=== PATIENT | male | born 1970 | race Caucasian/White ===

== ENCOUNTER 2025-05-12 08:54 | Outpatient (CLI) | payer OTHER, SELFPAY ==
--- NOTE | ~2025-05-12 | CT_ITS ---
EXAMINATION: CT abdomen pelvis w con DATE: 05/12/2025 09:22 INDICATION: Left lower quadrant pain. TECHNIQUE: Computed tomography (CT) of the abdomen and pelvis was performed with 100 cc Omnipaque 350 intravenous contrast. The dose-length product was 461.33 mGy-cm. Automated exposure control and iterative reconstruction technique were employed. COMPARISON: CT dated 09/25/2018 FINDINGS: There is mild thickening of the sigmoid colon with subtle surrounding inflammatory changes of the mesentery, consistent with diverticulitis. No evidence for perforation or abscess. Lung bases unremarkable. Heart size normal. No significant pleural or pericardial effusion. Fatty inf iltration. The spleen, pancreas, adrenal glands and left kidney are unremarkable. There is a right re nal cysts. Gallbladder is present. Nonobstructive bowel gas pattern. Normal appendix. No evidence for hernia. No free air or free fluid. IMPRESSION: 1. Mild uncomplicated sigmoid diverticulitis. Reviewed, dictated and finalized at location A.
--- OUTSIDE RECORDS SUMMARY | 2025-05-12 09:02 | XMS_ITS | Continuity of Care Document ---
Author Organization ID - [facility], [facility] - Toby Monterroso Address [address] [place] [address] Care Team Providers Care Cyber Systems Operations Specialist Name Role Phone WILLIAN JASSO Primary Care Provider Unavailab le Assessment No assessment recorded. Plan of Treatment Reminders Order Date Submit Date Provider Last Modified By Organization Details Last Modified Time Details Appointments None recorded. Lab None recorded. Referral None recorded. Procedures None recorded. Surgeries None recorded. Imaging CT, abdomen + pelvis, w/ contrast - #[id number] , effective 05/11/2025 - 06/25/20252024 025 [facility] (Imaging), [address] [place] [address] [address], [place], [address], 5 04:11:04 Medication Orders valacyclovi r 1 gram tablet 2024 025 [facility], [place], [address], [place], [place], [id number], 5 15:47:16 ciprofloxac in 500 mg tablet 2024 025 [facility], [place], [address], [place], [place], [id number], 5 15:47:17 metronidazo le 500 mg tablet 2024 025 [facility], [place], [address], [place], [place], [id number], 5 15:47:16 Patient TargetsNo targets recorded. Patient InstructionsNo instructions recorded. Reason for Referral None Reported. Results Created Date Observation Date Name Description Value Unit Range Abnormal Flag Note LastModifiedBy Organization Detail LastModifiedTime 05/10/2005/05/2025 miguel lozano am No observ ation record ed. [email or web address] [facility] [address], [place], [address], 05/11/2025 11:49:25 Result Notes None recorded. Problems Name Problem SNOMED Code Status Onset Date Resolution Date Notes Provider Name and Address Organization Details Recorded Time Body mass index 25-29 - overweight 861401852 Active 2023 DIVINE Lutz Attn: Accountin g,[address] [facility], [place], [address], [place] - [facility] 4 11:02:17 Overweight 009659054 Active 2023 DIVINE Lutz Attn: Accountin g,[address] [facility], [place], [address], [place] - [facility] 4 11:02:25 Diverticular disease 536168331 Active 2023 DIVINE Lutz Attn: Accountin g,[address] [facility], [place], [address], [place] [facility] 5 16:16:04 History of polyp of colon 878416128 Active 2023 DIVINE Lutz Attn: Accountin g,[address] [facility], [place], [address], [place] [facility] 4 11:08:04 Decreased hearing 340805181 Active 2023 DIVINE Ltuz Attn: Accountin g,[address] [facility], [place], [address], [place] [facility] 4 00:21:22 Herpes labialis 4789522 Active 2024 DIVINE Lutz Attn: Bradley walsh,[address], [place], [address], [facility] - [facility] 5 16:15:41 Overweight in adulthood with body mass index of 25 or more but less than 30 151541086 Active 2024 DIVINE Lutz Attn: Bradley g,[address], [place], [address], [place] - [facility] 5 16:15:46 Problem Notes None recorded. Procedures Surgical History Date Name Laterality Status Provider Name and Address Organization Details Recorded Time Vasectomy completed Carlos Shipley MA [facility] 10/03/2024 11:07:40 Tonsillectomy completed Carlos Shipley MA [facility] 10/03/2024 11:07:46 Imaging Results None recorded. Procedure Notes None recorded. Medical Equipment None Reported. Allergies No known drug allergies Medications Name Sig Start Date Stop Date Status Note LastModified by Organization Details LastModified Time doxycycline hyclate 100 mg capsule Take one capsule two times daily by mouth as directed 05/08 completed Not Available Not Available Not Available azithromyci n 250 mg tablet Take two tablets by mouth on day 1 followed by one tablet daily by mouth for a total of 5 days as directed 05/08 completed Not Available Not Available Not Available fluconazole 150 mg tablet Take one tablet by mouth ONCE. May repeat dose in 72 hours if needed. Take as directed. 05/10 completed Not Available Not Available Not Available valacyclovi r 1 gram tablet Take 2 tablets every 12 hours by oral route for 1 day. 2024 active Not Available Not Available Not Avai lable phenazopyri dine 200 mg tablet Take one tablet every 8 hours as needed 05/10 completed Not Available Not Available Not Available metronidazo le 500 mg tablet Take 1 tablet every 8 hours by oral route. 2024 active Not Available Not Available Not Avai lable valacyclovi r 500 mg tablet Take by oral route as directed for 41 days. active Not Available Not Available No t Available ciprofloxac in 500 mg tablet Take 1 tablet every 12 hours by oral route. 07/24/ 2025 active Not Available Not Available Not Avai lable nitrofurant oin macrocrysta l 100 mg capsule Take one capsule two times daily for up to 7 days 05/08 completed Not Available Not Available Not Available amoxicillin 875 mg-potassiu m clavulanate 125 mg tablet Take one tablet by mouth two times daily as directed 05/08 completed Not Available Not Available Not Available Vitals Date Recorded Body height Body mass index (BMI) Body weight Oxygen saturation Oxygen saturation in Arterial blood by Pulse oximetry Heart rate Respiratory rate Systolic And Diastolic Provider Name and Address Organization Details Last Updated DateTime 5 177.8 cm 26.4 kg/m2 71158 g 96 % 96 % 81 /min 20 /min 118/82 mm[Hg] Carlos Shipley MA [facility] 5 15:05:09 Social History Question Answer Notes LastModified by [employer] ion Details LastModified Time Tobacco Smoking Status Never Smoker Carlos Shipley MA null, [facility] 10/03/2024 10:57:09 Do You Have An Advance Directive? Yes Trust Information not available 10/03/2024 Are You Blind Or Do You Have Difficulty Seeing? Yes Glasses/c ontacts Information not available 10/03/2024 What Is Your Level Of Caffeine Consumption? Moderate Information not available 10/03/2024 In The 14 Days Before Symptom Onset, Have You Had Close Contact With A Laboratory-confir med COVID-19 While That Case Was Ill? No Information not available 05/11/2025 In The 14 Days Before Symptom Onset, Have You Had Close Contact With A Person Who Is Under Investigation For COVID-19 While That Person Was Ill? No Information not available 05/11/2025 Have You Been To An Area Known To Be High Risk For COVID-19? No Information not available 05/11/2025 Are You Deaf Or Do You Have Serious Difficulty Hearing? Yes Information not available 10/03/2024 What Type Of Diet Are You Following? REGULAR Information not available 10/03/2024 Are There Any Guns Present In Your Home? Yes Information not available 10/03/2024 What Was The Date Of Your Most Recent Tobacco Screening? 05/11/2025 Information not available 05/11/2025 What Is Your Relationship Status? Information not available 10/03/2024 Do You Use Your Seat Belt Or Car Seat Routinely? Yes Information not available 10/03/2024 Do You Have Smoke And Carbon Monoxide Detectors In Your Home? Yes Information not available 10/03/2024 Do You Use Sunscreen Routinely? Yes Information not available 10/03/2024 Has Tobacco Cessation Counseling Been Provided? No Information not available 10/03/2024 Sex: Male Functional Status Question Answer Note LastModified by Organizat ion Details LastModified Time Do you use any illicit or recreational drugs? No Information not available 10/03/2024 Do you or have you ever used any other forms of tobacco or nicotine? No Information not available 10/03/2024 What is your level of alcohol consumption? None Information not available 10/03/2024 Are you currently employed? Yes Information not available 10/03/2024 Are you able to care for yourself independently? Yes Information not available 10/03/2024 What is your exercise level? Moderate 5x a week Information not available 10/03/2024 Mental Status None recorded. Family History Relationship Description Onset Age of this Age Resolved Age Notes LastModified by Organization Details LastModified Time Father Heart disease [email or web address] Not available 2023 11:07:56 Father Myocardial infarction [email or web address] Not available 10/03 11:08:03 Medical History Condition Response Coronary Artery Disease N Other N High Blood Pressure N Atrial Fibrillation N Thyroid Problems N Kidney or Bladder Problems N GI Problems Y Depression N COPD N Blood Clots N Have you had a mammogram in the last yea r? N Skin Problems N Anemia N Heart Attack (ID) N Diabetes N Anxiety Disorder N Muscle, Joint, or Bone Problems N Seizures/Epilepsy N Have you had a colonoscopy in the last 1 0 years? N Acid Reflux (GERD) N Cancer N Stroke N Asthma N Allergies N Have you had a PSA blood test in the las t year? N High Cholesterol N Hepatitis N Liver Disease N Headaches N Osteoporosis N Heart Failure N Immunizations Vaccine Type Date Status Note Provider Nam e and Address Organization Details Recorded Time COVID-19, mRNA, LNP-S, PF, 30 mcg/0.3 mL dose 12/20/2020 completed RAY [place], [place] [facility] 11/02/2024 12:36:25 COVID-19, mRNA, LNP-S, PF, 30 mcg/0.3 mL dose 01/10/2021 completed RAY [place], [place] [facility] 11/02/2024 12:36:25 Past Encounters Encounter ID Performer Location Encounter Start Date Encounter Closed Date Diagnosis/Indication Diagnosis SNOMED-CT Code Diagnosis ICD10 Code Diagnosis Note [id number] Peter Garrido MD [facility] - Toby Monterroso [address] [place] [address] 05/11/2025 14:42:56 05/11/2025 16:16:26 Overweight in adulthood with body mass index of 25 or more but less than 30 606213175 E66.3 Z68.26 BMI is 26.4 Left lower quadrant pain 899652311 R10.32 Patient has already eaten for the day exam shows tenderness but no rebound or guarding. We will send him for a CT scan abdomen and pelvis with contrast in the morning to evaluate for diverticul ar smoldering infection versus micro per 5 with walled off abscess. We will also empiricall y start Cipro 500 mg twice daily and Flagyl 500 mg 3 times daily for 7 days. Herpes labialis 2853085 B00.1 Refill needed on valacyclov ir Diverticular disease 397 504084 K57.90 History of diverticul ar disease noted Health Concerns Section Related Observation LastModified by Organization Detai ls LastModified Time None Recorded Concern Status LastModified by Organization Details LastModified Time None Recorded Payers Encounter Date Sequence Insurance Name Policy Number Policy Sanderson Covered Member ID Sanderson Member ID Guarantor Name 05/11/[address] [facility] [id number] Trini Swann [id number] Haile Swann Notes Date Note Type Note Provider Name and Address Organization Details Recorded Time text/html Abdominal PainReported by PatientAbdominal PainFor quality, patient reportspain,bloating,dul l,sharp, andfullness. For location, patient reportsllqandsuprapubic. For severity, patient reportsmoderate. For duration, patient reportsintermittent. For onset/timing, patient reportswax/wane. For associated symptoms, patient reportsno fever,no chills,no blood in the urine,no heartburn, andno shortness of breath. For context, (history of diverticulitis).Patient presented to the emergency room while in [facility] feeling very poorly some GI disturbance left lower quadrant discomfort overall malaise fatigue dizziness feeling of just exhaustion and illness. No fever no vomiting no chills no chest pain no shortness a breath. He had a high sugar upon EMS evaluation after drinking a Coca-Cola to try to see if that helped his symptoms, of which it did not. He was taken to the emergency room and was found to have an A1c of 5.8% his blood pressure was 149/86 with a little bit of tachycardia but nothing significant. EKG was overall stable chest x-ray was clear no acute findings with the blood work. He was admitted overnight for observation. They felt that he was possibly dehydrated and it was the effects of high altitude in having some natural diuresis that was happening with that. One of the biggest symptoms that he was experiencing was significant urinary frequency. There was no UTI found. There was no scanning that was completed in the emergency room on the abdomen and pelvis. He presents here for follow-up. Yesterday he had a little similar episode to a much lesser degree but is feeling back to normal today besides some left lower quadrant discomfort that is mild. It is very minimally similar to his diverticular problems in the past. DIVINE Lutz Attn: Accounting,[address] [place], [address], [facility] - [facility] 05/11/2025 16:16:23
--- OUTSIDE RECORDS SUMMARY | 2025-05-12 09:02 | XMS_ITS | Data Portability ---
Author Organization EDY ELLYNJose Alejandro Nair Address [address] [facility] [place] [address] Care Team Providers Care Brinell Tester Name Role Phone PENNY JASSO Primary Care Provider Unavailab le Assessment Encounter Date Assessment Date Assessment LastModified by Organization Details LastModified Time 10/03/2024 10/03/2024 Colonoscopy ? due, patient will reach out to us once he finds the location that he had his colonoscopy previously and the year completed. We will also acquire medical records from the last office location Not available 10/17/2024 00:21:04 Plan of Treatment Reminders Order Date Submit Date Provider Last Modified By Organization Details Last Modified Time Details Appointments None recorded. Lab PSA, total, serum or plasma 2023 024 [facility], [address] [facility], [facility] [place], [address], 4 07:09:54 TSH + free T4, serum 2023 024 [facility], [address] [facility], [facility] [place], [address], 4 07:09:48 lipid panel, serum or plasma 2023 024 [facility], [address] [facility], [facility] [address], [place], [address], 4 07:09:49 CBC w/ auto diff 2023 024 [facility], [address] [facility], [facility] [address], [place], [address], 4 07:09:53 CMP, serum or plasma 2023 024 [facility], [address] [facility], [facility] [address], [place], [address], 4 07:09:50 HbA1c (hemoglobin A1c), blood 2023 024 [facility], [address] [facility], [facility] [address], [place], [address], 4 07:09:52 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 Surgeries None recorded. Imaging CT, abdomen + pelvis, w/ contrast - #[id number] , effective 05/11/2025 - 06/25/20252024 025 [facility]), [address] [facility] [address], [place], [address], 5 04:11:04 Medication Orders valacyclovi r 1 gram tablet 2024 025 [facility] by [facility], [address], [place], [place], [id number], 5 15:47:16 ciprofloxac in 500 mg tablet 2024 025 [facility], [address], [place], [place], [id number], 5 15:47:17 metronidazo le 500 mg tablet 2024 025 [facility], [address], [place], [place], [id number], 15:47:16 Patient TargetsNo targets recorded. 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 reased hearing Referring Physician: Penny Jasso, Internal Medicine, Encounter Date: 10/03/2024 Results Created Date Observation Date Name Description Value Unit Range Abnormal Flag Note LastModifiedBy Organization Detail LastModifiedTime 10/05/2010/06/2024 TSH+F REE T4 TSH 2.160 uIU/m L 0.450- 4.500 Not Available [facility] ([facility]) [address] [place], [address], 10/06/2024 07:09:48 10/05/2010/06/2024 TSH+F REE T4 T4,free(dire ct) 1.13 NG/dL 0.82-1 .77 Not Available [facility] ([facility]) [address] [place], [address], 10/06/2024 07:09:48 10/05/20 24 10/06/2024 LIPID PANEL WITH LDL/H DL RATIO cholesterol, total 208 mg/dL 100-19 9 above high normal Not Available [facility] ([facility]) [address] [place], [address], 10/06/2024 07:09:49 10/05/20 24 10/06/2024 LIPID PANEL WITH LDL/H DL RATIO triglyceride s 149 mg/dL 0-149 Not Available [facility] ([facility]) [address] [place], [address], 10/06/2024 07:09:49 10/05/20 24 10/06/2024 LIPID PANEL WITH LDL/H DL RATIO HDL cholesterol 37 mg/dL >39 below low normal Not Available [facility] ([facility]) [address] [place], [address], 10/06/2024 07:09:49 10/05/20 24 10/06/2024 LIPID PANEL WITH LDL/H DL RATIO VLDL cholesterol renato 27 mg/dL 5-40 Not Available [facility] ([facility]) [address] [place], [address], 10/06/2024 07:09:49 10/05/20 24 10/06/2024 LIPID PANEL WITH LDL/H DL RATIO LDL chol calc ([facility]) 144 mg/dL 0-99 above high normal Not Available [facility] ([facility]) [address] [place], [address], 10/06/2024 07:09:49 10/05/20 24 10/06/2024 LIPID PANEL WITH LDL/H DL RATIO LDL/HDL ratio 3.9 ratio 0.0-3. 6 above high normal LDL/H DL Ratio Men Women 1/2 Avg.R isk 1.0 1.5 Avg.R isk 3.6 3.2 2X Avg.R isk 6.2 5.0 3X Avg.R isk 8.0 6.1 Not Available [facility] ([facility]) [address] [place], [address], 10/06/2024 07:09:49 10/05/20 24 10/06/2024 COMP. METAB OLIC PANEL (14) glucose 91 mg/dL 70-99 Not Available [facility] ([facility]) [address] [place], [address], 10/06/2024 07:09:50 10/05/20 24 10/06/2024 COMP. METAB OLIC PANEL (14) BUN 13 mg/dL 6-24 Not Available [facility] ([facility]) [address] [place], [address], 10/06/2024 07:09:50 10/05/20 24 10/06/2024 COMP. METAB OLIC PANEL (14) creatinine 0.88 mg/dL 0.76-1 .27 Not Available [facility] ([facility]) [address] [place], [address], 10/06/2024 07:09:50 10/05/20 24 10/06/2024 COMP. METAB OLIC PANEL (14) eGFR 102 mL/mi n/1.7 3 >59 Not Available [facility] ([facility]) [address] [place], [address], 10/06/2024 07:09:50 10/05/20 24 10/06/2024 COMP. METAB OLIC PANEL (14) BUN/creatini ne ratio 15 9-20 Not Available [facility] ([facility]) [address] [place], [address], 10/06/2024 07:09:50 10/05/20 24 10/06/2024 COMP. METAB OLIC PANEL (14) sodium 138 mmol/ L 134-14 4 Not Available [facility] ([facility]) [address] [place], [address], 10/06/2024 07:09:50 10/05/20 24 10/06/2024 COMP. METAB OLIC PANEL (14) potassium 4.3 mmol/ L 3.5-5. 2 Not Available [facility] ([facility]) [address] [place], [address], 10/06/2024 07:09:50 10/05/20 24 10/06/2024 COMP. METAB OLIC PANEL (14) chloride 100 mmol/ L 96-106 Not Available [facility] ([facility]) [address] [place], [address], 10/06/2024 07:09:50 10/05/20 24 10/06/2024 COMP. METAB OLIC PANEL (14) carbon dioxide, total 24 mmol/ L 20-29 Not Available [facility] ([facility]) [address] [facility], [place], [address], 10/06/2024 07:09:50 10/05/20 24 10/06/2024 COMP. METAB OLIC PANEL (14) calcium 9.7 mg/dL 8.7-10 .2 Not Available [facility] ([facility]) [address] [place], [address], 10/06/2024 07:09:50 10/05/20 24 10/06/2024 COMP. METAB OLIC PANEL (14) protein, total 6.8 g/dL 6.0-8. 5 Not Available [facility] ([facility]) [address] [place], [address], 10/06/2024 07:09:50 10/05/20 24 10/06/2024 COMP. METAB OLIC PANEL (14) albumin 4.5 g/dL 3.8-4. 9 Not Available [facility] ([facility]) [address] [place], [address], 10/06/2024 07:09:50 10/05/20 24 10/06/2024 COMP. METAB OLIC PANEL (14) globulin, total 2.3 g/dL 1.5-4. 5 Not Available [facility] ([facility]) [address] [place], [address], 10/06/2024 07:09:50 10/05/20 24 10/06/2024 COMP. METAB OLIC PANEL (14) bilirubin, total 0.5 mg/dL 0.0-1. 2 Not Available [facility] ([facility]) [address] [place], [address], 10/06/2024 07:09:50 10/05/20 24 10/06/2024 COMP. METAB OLIC PANEL (14) alkaline phosphatase 50 IU/L 44-121 Not Available [facility] ([facility]) [address] [place], [address], 10/06/2024 07:09:50 10/05/20 24 10/06/2024 COMP. METAB OLIC PANEL (14) AST (SGOT) 19 IU/L 0-40 Not Available [facility] ([facility]) [address] [facility], [place], [address], 10/06/2024 07:09:50 10/05/20 24 10/06/2024 COMP. METAB OLIC PANEL (14) ALT (SGPT) 20 IU/L 0-44 Not Available [facility] ([facility]) [address] [facility], [place], [address], 10/06/2024 07:09:50 10/05/20 24 10/06/2024 HEMOG LOBIN A1C hemoglobin A1C 6.3 % 4.8-5. 6 above high normal Predi abete s: 5.7 - 6.4 Diabe mitch: >6.4 Glyce katey contr ol for adult s with diabe mitch: <7.0 Not Available [facility] ([facility]) [address] [facility], [place], [address], 10/06/2024 07:09:51 10/05/20 24 10/05/2024 CBC WITH DIFFE RENTI AL/PL ATELE T WBC 5.9 x10e3 /uL 3.4-10 .8 Not Available [facility] ([facility]) [address] [place], [address], 10/06/2024 07:09:52 10/05/20 24 10/05/2024 CBC WITH DIFFE RENTI AL/PL ATELE T RBC 5.12 x10e6 /uL 4.14-5 .80 Not Available [facility] ([facility]) [address] [place], [address], 10/06/2024 07:09:52 10/05/20 24 10/05/2024 CBC WITH DIFFE RENTI AL/PL ATELE T hemoglobin 15.8 g/dL 13.0-1 7.7 Not Available [facility] ([facility]) [address] [facility], [place], [address], 10/06/2024 07:09:52 10/05/20 24 10/05/2024 CBC WITH DIFFE RENTI AL/PL ATELE T hematocrit 47.4 % 37.5-5 1.0 Not Available [facility] ([facility]) [address] [facility], [place], [address], 10/06/2024 07:09:52 10/05/20 24 10/05/2024 CBC WITH DIFFE RENTI AL/PL ATELE T MCV 93 fL 79-97 Not Available [facility] ([facility]) [address] [facility], [place], [address], 10/06/2024 07:09:52 10/05/20 24 10/05/2024 CBC WITH DIFFE RENTI AL/PL ATELE T MCH 30.9 pg 26.6-3 3.0 Not Available [facility] ([facility]) [address] [facility], [place], [address], 10/06/2024 07:09:52 10/05/20 24 10/05/2024 CBC WITH DIFFE RENTI AL/PL ATELE T MCHC 33.3 g/dL 31.5-3 5.7 Not Available [facility] ([facility]) [address] [facility], [place], [address], 10/06/2024 07:09:52 10/05/20 24 10/05/2024 CBC WITH DIFFE RENTI AL/PL ATELE T RDW 12.3 % 11.6-1 5.4 Not Available [facility] ([facility]) [address] [facility], [place], [address], 10/06/2024 07:09:52 10/05/20 24 10/05/2024 CBC WITH DIFFE RENTI AL/PL ATELE T platelets 206 x10e3 /uL 150-45 0 Not Available [facility] ([facility]) [address] [facility], [place], [address], 10/06/2024 07:09:52 10/05/20 24 10/05/2024 CBC WITH DIFFE RENTI AL/PL ATELE T neutrophils 60 % notest ab. Not Available [facility] ([facility]) [address] [facility], [place], [address], 10/06/2024 07:09:52 10/05/20 24 10/05/2024 CBC WITH DIFFE RENTI AL/PL ATELE T lymphs 30 % notest ab. Not Available [facility] ([facility]) [address] [facility], [place], [address], 10/06/2024 07:09:52 10/05/20 24 10/05/2024 CBC WITH DIFFE RENTI AL/PL ATELE T monocytes 8 % notest ab. Not Available [facility] ([facility]) [address] [facility], [place], [address], 10/06/2024 07:09:52 10/05/20 24 10/05/2024 CBC WITH DIFFE RENTI AL/PL ATELE T eos 1 % notest ab. Not Available [facility] ([facility]) [address] [facility], [place], [address], 10/06/2024 07:09:52 10/05/20 24 10/05/2024 CBC WITH DIFFE RENTI AL/PL ATELE T basos 1 % notest ab. Not Available [facility] ([facility]) [address] [facility], [place], [address], 10/06/2024 07:09:52 10/05/20 24 10/05/2024 CBC WITH DIFFE RENTI AL/PL ATELE T neutrophils (absolute) 3.5 x10e3 /uL 1.4-7. 0 Not Available [facility] ([facility]) [address] [facility], [place], [address], 10/06/2024 07:09:52 10/05/20 24 10/05/2024 CBC WITH DIFFE RENTI AL/PL ATELE T lymphs (absolute) 1.8 x10e3 /uL 0.7-3. 1 Not Available [facility] ([facility]) [address] [facility], [place], [address], 10/06/2024 07:09:52 10/05/20 24 10/05/2024 CBC WITH DIFFE RENTI AL/PL ATELE T monocytes(ab solute) 0.5 x10e3 /uL 0.1-0. 9 Not Available [facility] ([facility]) [address] [facility], [place], [address], 10/06/2024 07:09:52 10/05/20 24 10/05/2024 CBC WITH DIFFE RENTI AL/PL ATELE T eos (absolute) 0.1 x10e3 /uL 0.0-0. 4 Not Available [facility] ([facility]) [address] [facility], [place], [address], 10/06/2024 07:09:52 10/05/20 24 10/05/2024 CBC WITH DIFFE RENTI AL/PL ATELE T baso (absolute) 0.0 x10e3 /uL 0.0-0. 2 Not Available [facility] ([facility]) [address] [facility], [place], [address], 10/06/2024 07:09:52 10/05/20 24 10/05/2024 CBC WITH DIFFE RENTI AL/PL ATELE T immature granulocytes 0 % notest ab. Not Available [facility] ([facility]) [address] [facility], [place], [address], 10/06/2024 07:09:52 10/05/20 24 10/05/2024 CBC WITH DIFFE RENTI AL/PL ATELE T immature grans (abs) 0.0 x10e3 /uL 0.0-0. 1 Not Available [facility] ([facility]) [address] [facility], [place], [address], 10/06/2024 07:09:52 10/05/2010/06/2024 PROST ATE-S PECIF IC AG prostate specific Ag 0.6 NG/mL 0.0-4. 0 Tulio ECLIA metho dolog y. Accor ding to the Ameri can Urolo gical Assoc iatio n, Serum PSA shoul d decre ase and remai n at undet ectab le level s after radic al prost atect scott. The AUA defin es bioch emica l recur rence as an initi al PSA value 0.2 ng/mL or great er follo wed by a subse quent confi rmato ry PSA value 0.2 ng/mL or great er. Value s obtai alberto with diffe rent assay metho ds or kits canno t be used inter penn eably . Resul ts canno t be inter prete d as absol bishop paiute evide nce of the prese nce or absen ce of ingrid stoll se. Not Available [facility] ([facility]) [address] [facility], [place], [address], 10/06/2024 07:09:54 05/10/2005/05/2025 elect shivani blake am No observ ation record ed. [email or web address] [facility]) [address] [facility], [place], [address], 05/11/2025 11:49:25 Result Notes None recorded. Problems Name Problem SNOMED Code Status Onset Date Resolution Date Notes Provider Name and Address Organization Details Recorded Time Body mass index 25-29 - overweight 530141885 Active 2023 [facility] Attn: Bradley walsh,[address] [facility], [place], [address], [facility] 4 11:02:17 Overweight 870675615 Active 2023 [facility] Attn: Bradley walsh,[address] [place], [address], [place] - [facility] 4 11:02:25 Diverticular disease 480581354 Active 2023 [facility] Attn: Bradley walsh,[address] [facility], [place], [address], [place] - [facility] 5 16:16:04 History of polyp of colon 916728263 Active 2023 [facility] Attn: Bradley walsh,[address] [facility], [place], [address], [place] - [facility] 4 11:08:04 Decreased hearing 384600057 Active 2023 [facility] Attn: Bradley walsh,[address] [place], [address], [place] - [facility] 4 00:21:22 Herpes labialis 4948671 Active 2024 [facility] Attn: Bradley walsh,[address] [facility], [place], [address], [place] - [facility] 5 16:15:41 Overweight in adulthood with body mass index of 25 or more but less than 30 616361970 Active 2024 [facility] Attn: Bradley walsh,[address] [place], [address], [place] - [facility] 5 16:15:46 Problem Notes None recorded. Procedures Surgical History Date Name Laterality Status Provider Name and Address Organization Details Recorded Time Vasectomy completed Carlos Shipley MA [place] [facility] 10/03/2024 11:07:40 Tonsillectomy completed Carlos Shipley MA [place] [facility] 10/03/2024 11:07:46 Imaging Results None recorded. Procedure [...] tablet every 12 hours by oral route. 2024 active Not [...] Updated DateTime 5 177.8 cm 26.4 kg/m2 00047 g 96 % 96 % 81 /min 20 /min 118/82 mm[Hg] Carlos Shipley MA [facility] 15:05:09 Date Recorded Respiratory rate Systolic And Diastolic Provider Name and Address Organization Details Last Updated DateTime 10/03/2024 18 /min 120/80 mm[Hg] DIV[facility] Attn: Accounting,[address] [facility], [place], [address], [facility] 10/03/2024 11:17:22 Date Recorded Body weight Body mass index (BMI) Body height Oxygen saturation Oxygen saturation in Arterial blood by Pulse oximetry Heart rate Systolic And Diastolic Provider Name and Address Organization Details Last Updated DateTime 4 78761.3 3 g 27.7 kg/m2 177.8 cm 96 % 96 % 78 /min 108/82 mm[Hg] Carlos Shipley MA [facility] 10:59:50 Social History Question Answer Notes LastModified by Organizat ion Details LastModified Time Tobacco Smoking Status Never Smoker Carlos Shipley MA null, [facility] 10/03/2024 10:57:09 Do You Have An [...] Problems N Kidney or Bladder Problems N Depression N COPD N Blood Clots N GI Problems Y Have you had a mammogram in the last yea r? N Skin Problems N Anemia N Heart Attack (ID) N Anxiety Disorder N Diabetes N Muscle, Joint, or Bone Problems N [...] PF, 30 mcg/0.3 mL dose 12/20/2020 completed Carlos Shipley [place] null, [place] - [facility] 11/02/2024 12:36:25 COVID-19, mRNA, LNP-S, PF, 30 mcg/0.3 mL dose 01/10/2021 completed Carlos Shipley MA [place], [place] - [facility] 11/02/2024 12:36:25 Past Encounters Encounter ID Performer Location Encounter Start Date Encounter Closed Date Diagnosis/Indication Diagnosis SNOMED-CT Code Diagnosis ICD10 Code Diagnosis Note [id number] Peter Garrido MD [facility] [facility] [place] [address] [place] [address] 10/03/2024 10:39:54 10/03/2024 12:15:59 Adult health examination 760409049 Z00.00 Annual wellness exam completed with fasting labs ordered Cholesterol screening 27 0976811 Z13.220 Fasting lipid due Diabetes m ellitus screening 982484223 Z13.1 Annual diabetes screening ordered Screening for malignant neoplasm of prostate 767879693 Z12.5 Annual PSA due Body mass index 25-29 - overweight 910126423 Z68.27 BMI is 27.7 Overweight 475494974 E66 .3 Decreased hearing 082301 001 H91.90 Refer for formal audiology exam per patient request with decreased hearing History of polyp of colon 456248074 Z86.0100 pt will notify us on where to send colonoscop y order. he went to a provider in [facility]. Thyroid di sorder screening 102867196 Z13.29 Routine thyroid function testing due Diverticular disease 397 749419 K57.90 no recent flare up. he manages well with diet. [id number] Peter Garrido MD [facility] [employer] [address] [place] [address] 05/11/2025 14:42:56 05/11/2025 16:16:26 Overweight in adulthood with body mass index of 25 or more but less than 30 767186155 E66.3 Z68.26 BMI is 26.4 Left lower quadrant pain 710800570 R10.32 Patient has already eaten for the [...] times daily for 7 days. Herpes labialis 2401800 B00.1 Refill needed on valacyclov ir Diverticular disease 397 158789 K57.90 History of diverticul ar disease noted Health Concerns Section Related Observation LastModified by Organization Detai ls LastModified Time None Recorded Concern Status LastModified by Organization Details LastModified Time None Recorded Advance Directives Directive Y: Trust Payers Insurance Date Sequence Insurance Name Policy Number Policy Sanderson Covered Member ID Sanderson Member ID Guarantor Name 05/09/2025 1 [facility] [id number] Trini Swann [id number] Haile Swann Notes Date Note Type Note Provider Name and Address Organization Details Recorded Time 4 text/html pt here for annual wellness. History of colonoscopy with no polyps. [facility] L[facility] Attn: Accounting,[address] [place], [address], [place] [facility] 10/17/2024 00:22:02 5 text/html Abdominal PainReported by PatientAbdominal PainFor quality, patient reportspain,bloating,dul l,sharp, andfullness. For location, patient reportsllqandsuprapubic. For severity, patient reportsmoderate. For duration, patient reportsintermittent. For onset/timing, patient reportswax/wane. For associated symptoms, patient reportsno fever,no chills,no blood in the urine,no heartburn, andno shortness of breath. For context, (history of diverticulitis).Patient presented to the emergency room while in [facility] feeling very poorly some GI disturbance left [...] the past. DIVINE Lutz Attn: Accounting,[address] [place], [address], [place] [facility] 05/11/2025 16:16:23
--- OUTSIDE RECORDS SUMMARY | 2025-05-12 09:02 | XMS_ITS | Patient Health Record ---
Author Organization [id number] Address [address] [facility] [address] [address] Care Team Providers Care Apartment Maintenance Supervisor Name Role Phone Demarco Bowman MD Primary Care Provider Unavailabl e Reason For Referral No Information Plan Of Treatment No Information Insurance Providers Payer Name Payer Address Payer Phone Subscriber Number Group Number Insured Name Patient Relationship to Insured Coverage Start Date Coverage End Date [employer] Choice/ choice Plus [id number] [address] [address] [place] [address] [phone] [id number] Haile Swann Spouse - patient is the spouse of the insured
--- OUTSIDE RECORDS SUMMARY | 2025-05-12 09:02 | XMS_ITS | Data Portability ---
Author Organization [facility] [employer], Main Office Address [address] [place] [address] Assessment No assessment recorded. Plan of Treatment Reminders Order Date Submit Date Provider Last Modified By Organization Details Last Modified Time Details Appointments None recorded. Lab PSA, serum or plasma 2022 023 [email or web address] 4 Not available 4 16:36:29 lipid panel, serum 2022 023 [email or web address] 4 Not available 4 16:36:29 HbA1c (hemoglobin A1c), blood 2022 023 [email or web address] 4 Not available 4 16:36:29 CMP, serum or plasma 2022 023 [email or web address] 4 Not available 4 16:36:28 CBC w/ auto diff 2022 023 [email or web address] 4 Not available 4 16:36:28 urinalysis, complete 2022 023 [email or web address] 4 Not available 4 16:36:29 vitamin B12 + folate, serum or blood 2022 023 [email or web address] 4 Not available 4 16:36:29 Referral None recorded. Procedures colonoscopy screening (PROC) 2022 023 lila Fowler, [address] [facility], [address], [address], 4 09:35:17 Surgeries None recorded. Imaging None recorded. Medication Orders None recorded. Patient TargetsNo targets recorded. Patient InstructionsNo instructions recorded. Reason for Referral None Reported. Results Created Date Observation Date Name Description Value Unit Range Abnormal Flag Note LastModifiedBy Organization Detail LastModifiedTime 10/09/2010/09/2021 XR, cervi renato spine No observ ation record ed. [id number] , [place], [address], 12/17/2022 17:48:41 Result Notes None recorded. Problems Name Problem SNOMED Code Status Onset Date Resolution Date Notes Provider Name and Address Organization Details Recorded Time Injury of foot 290638820 Active [facility] Available [facility] 17:45:43 Plantar fasciitis 818991684 Active [facility] Available [facility] 17:45:43 Fracture of phalanx of foot 00879780 Active [facility] Available [facility] 17:45:43 Eruption 821654418 Active [facility] Available [facility] 17:45:43 Pain in toe 204456287 Active Not Available [facility] 17:45:43 Sinusitis 74510128 Active Not Available [facility] 17:45:43 Pharyngitis 387656756 Active Not Available [facility] 17:45:43 Closed fracture of phalanx of foot 28025639 Active Not Available [facility] 17:45:44 Problem Notes None recorded. Procedures Surgical History Date Name Laterality Status Provider Name and Address Organization Details Recorded Time Vasectomy completed Not Available [facility] 17:43:46 Tonsillectomy completed Not Available [facility] 12/17/2022 17:43:46 Imaging Results None recorded. Procedure Notes None recorded. Medical Equipment None Reported. Allergies Allergen ID Allergen Name Allergen Category Reaction Reaction Severity Criticality Documentation Date Start Date Code Code System Note Provider Name and Address Organization Details Recorded Time 64435 Augmentin medicatio n rash Not available Not available 12/17/2022 92652 2 RxNorm Not Available [facility] 17:48:34 Medications Name Sig Start Date Stop Date Status Note LastModified by Organization Details LastModified Time cyclobenzap rine 10 mg tablet Take 1 tablet 3 times a day by oral route as needed. active Not Available Not Available No t Available azithromyci n 250 mg tablet TK 1 T PO D X 6 WEEKS 12/21 completed Not Available Not Available Not Available metronidazo le 500 mg tablet Take 1 tablet every 8 hours by oral route. 08/01 completed Not Available Not Available Not Available ciprofloxac in 500 mg tablet 08/01 completed Not Available Not Available Not Available triamcinolo ne acetonide 0.1 % topical cream APPLY TO PINK SPOTS BID 10/04 completed Not Available Not Available Not Available trazodone 100 mg tablet active Not Available Not Available Not Available levofloxaci n 500 mg tablet TK 1 T PO Q 24 H 09/28 completed Not Available Not Available Not Available methylpredn isolone 4 mg tablets in a dose pack take as directed 06/02 completed Not Available Not Available Not Available fluticasone propionate 50 mcg/actuati on nasal spray,suspe nsion active Not Available Not Available Not Available doxycycline hyclate 100 mg tablet TK 1 T PO BID active Not Available Not Available No t Available naproxen 500 mg tablet Take by oral route as needed for 30 days. active Not Available Not Available No t Available diclofenac 1 % topical gel APPLY 2 GRAM TO THE AFFECTED AREA(S) TOPICALLY FOUR TIMES DAILY NEEDED FOR PAIN 10/03 completed Not Available Not Available Not Available Cayla-D takes as needed for sinuses 2015 active Not Available Not Available Not Avai lable Vitals Date Recorded Systolic And Diastolic Provider Name and Address Organization Details Last Updated DateTime 06/02/2023 120/70 mm[Hg] DIVINE Lutz [address] [facility], [facility] [address], [place], [address], [place] [employer] 06/02/2023 17:15:53 Date Recorded Body weight Body mass index (BMI) Body height Body temperature Heart rate Oxygen saturation Oxygen saturation in Arterial blood by Pulse oximetry Systolic And Diastolic Provider Name and Address Organization Details Last Updated DateTime 3 23867.3 7 g 27.8 kg/m2 175.26 cm 98 [degF] 74 /min 97 % 97 % 124/72 mm[Hg] Stefanie Ortiz RN [facility] [employer] 3 16:35:28 Date Recorded Body mass index (BMI) Body height Oxygen saturation Oxygen saturation in Arterial blood by Pulse oximetry Heart rate Body temperature Body weight Systolic And Diastolic Provider Name and Address Organization Details Last Updated DateTime 1 30.1 kg/m2 167.64 cm 98 % 98 % 80 /min 96.9 [degF] 76350.3 4 g 120/80 mm[Hg] Not Available [facility] 3 17:45:02 Social History Question Answer Notes LastModified by [employer] Details LastModified Time Tobacco Smoking Status Never Smoker Not Available [facility] 12/17/2022 17:43:36 Do You Have An Advance Directive? Yes [id number] Information not available 12/17/2022 What Is Your Level Of Caffeine Consumption? Moderate [id number] Information not available 12/17/2022 What Type Of Diet Are You Following? REGULAR [id number] Information not available 12/17/2022 Have There Been Any Changes To Your Family Or Social Situation? No [id number] Information not available 12/17/2022 Are There Any Guns Present In Your Home? Yes [id number] Information not available 12/17/2022 What Is Your Relationship Status? [id number] Information not available 12/17/2022 Do You Use Your Seat Belt Or Car Seat Routinely? Yes [id number] 026 Information not available 12/17/2022 Do You Have Smoke And Carbon Monoxide Detectors In Your Home? Yes [id number] Information not available 12/17/2022 Do You Use Sunscreen Routinely? Yes [id number] Information not available 12/17/2022 Sex: Unknown Functional Status Question Answer Note LastModified by [employer] Details LastModified Time Do you use any illicit or recreational drugs? No [id number] Information not available 12/17/2022 What is your level of alcohol consumption? 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 Moderate [id number] Information not available 12/17/2022 Mental Status None recorded. Family History Relationship Description Onset Age of this Age Resolved Age Notes LastModified by Organization Details LastModified Time Father Cardiac arrhythmia [id number] Not available 12/17/2022 17:43:48 Medical History Condition Response SKIN PROBLEMS Y BOWEL PROBLEMS Y Past Encounters Encounter ID Performer Location Encounter Start Date Encounter Closed Date Diagnosis/Indication Diagnosis SNOMED-CT Code Diagnosis ICD10 Code Diagnosis Note [id number] DIVINE Lutz [facility] [address] [place] [address] 10/04/2021 00:00:00 10/17/2021 20:47:43 [id number] DIVINE Lutz [facility] [place] [address] [place] [address] 06/02/2023 16:13:31 06/02/2023 17:16:06 Adult health examination 970032815 Z00.00 well exam completed. labs are all due fasting evaluation . Cholesterol screening 27 6803053 Z13.220 Diabetes m ellitus screening 445525986 Z13.1 Screening for malignant neoplasm of prostate 812042921 Z12.5 Screening for malignant neoplasm of colon 810721182 Z12.11 refer for colonoscop y with GI of patient's choice he has. Health Concerns Section Related Observation LastModified by Organization Detai ls LastModified Time None Recorded Concern Status LastModified by Organization Details LastModified Time None Recorded Advance Directives Directive Y: Payers Insurance Date Sequence Insurance Name Policy Number Policy Sanderson Covered Member ID Sanderson Member ID Guarantor Name 06/10/2023 1 [employer] [id number] Lonnie Swann [id number] Lonnie Swann 06/10/2023 2 [employer] [id number] Trini Swann [id number] Lonnie Swann 06/01/2023 1 [id number] Trini Swann [id number] Lonnie Swann Notes Date Note Type Note Provider Name and Address Organization Details Recorded Time 06/02/2023 text/html Generic HPI TemplateReported by [facility] for annual exam, due for labs. screening colonoscopy. pt is feeling good. no c/o. wellness DIVINE Lutz [address], [facility] [address], [place], [address], [place] [facility] 06/08/2023 09:47:38
== END 2025-05-12 08:55 | disposition home or self-care (01) ==
PROVIDERS: PCP Physician Assistant; Visit Provider Physician Assistant
DX: R10.32 Left lower quadrant pain (principal); K57.32 Diverticulitis of large intestine without perforation or abscess without bleeding
CPT/HCPCS: 74177; Q9967